=== PATIENT | male | born 1990 | race Hispanic/Latino ===

== ENCOUNTER 2018-07-27 09:40 | Outpatient (CLI) | payer OTHER ==
--- NOTE | 2018-07-27 11:57 | MRI ---
RIGHT SHOULDER MRI WITHOUT IV CONTRAST: Date: 07/27/18 HISTORY: Right shoulder pain, bursitis right shoulder. No known injury. TECHNIQUE: Multiplanar, multisequence MRI examination of the right shoulder is performed. FINDINGS: There are some AC joint arthrosis changes with some minimal fluid and some fat stranding in the subac romial bursa. Supraspinatus and infraspinatus tendons demonstrate no evidence for tear. Biceps tendon and subscapularis tendons appear intact. Rotator cuff muscles are within normal limits in size, shap e, and position. Visualized labrum appears unremarkable. 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 No evidence fo r significant rotator cuff tear or labral tear, or other significant acute process. POS: [facility]
== END 2018-07-27 09:41 | disposition home or self-care (01) ==
LOC: BICMRI 09:40
PROVIDERS: ATTEND Family Medicine
DX: M75.51 Bursitis of right shoulder (principal); M19.011 Primary osteoarthritis, right shoulder